=== PATIENT | male | born 1975 | race Caucasian/White ===

== ENCOUNTER 2022-07-13 03:29 | Emergency (ER) | payer OTHER, SELFPAY ==
[2022-07-13 03:36] VITALS: BP 165/96; PULSE 94; RESP 18; TEMP 36.7; O2SAT 96; BMI 46.8
--- NOTE | 2022-07-13 03:43 | ED_ITS ---
HPI - General Adult General: Chief complaint: General Medical Stated complaint: Sinus Infection Time Seen by Provider: 07/13/22 03:40 Source: patient Mode of arrival: ambulatory Limitations: no limitations History of Present Illness: 46-year-old male who states over the last week he has had nasal congestion along with cough and some dyspnea. He is a chronic smoker he states that he is tried [id number] medicines and his cough is worsened and is productive. He denies any fever he is able speak in full senses here. Associated symptoms: Deny chest pain, headache(s), nausea, rash or vomiting Review of Systems Const: Denies: fever(s), chills, body aches or change in appetite Eyes: Denies: blurry vision or eye discomfort ENMT: Reports: nasal congestion and sinus pain Card: Denies: chest pain Resp: Reports: productive cough and chest congestion GI: Denies: abdominal pain, nausea, vomiting or diarrhea : Denies: dysuria Musc: Denies: neck pain or back pain Skin/Breast: Denies: rash Neuro: Denies: headache(s) Psych: Denies: depression Jaden/Lymph: Denies: easy bruising All/Imm: Denies: urticaria PFSH ED PFSH: Medical History (Updated 07/13/22 @ 03:51 by Steve Us MD) No pertinent past medical history Social History (Updated 07/13/22 @ 03:44 by Steve Us MD) Smoking and tobacco status: current every day smoker Physical Exam Const: COMMON NORMALS: no acute distress, patient oriented x3 and healthy appearing HENMT: COMMON NORMALS: normocephalic and atraumatic HEAD & SCALP: normocephalic and atraumatic Eye: COMMON NORMALS: Equal, round and reactive pupils present and EOMs intact bilaterally PUPIL: Yes Equal, round and reactive pupils present Neck/C-Spine: COMMON NORMALS: full ROM and supple Chest: COMMONS NORMALS: normal inspection of the chest and normal palpation of entire chest wall Resp: COMMON NORMALS: normal respiratory effort, No retractions, No use of accessory muscles and clear to auscultation bilaterally AUSCULTATION: clear to auscultation bilaterally Cardio: COMMON NORMALS: regular rate, regular rhythm and No murmurs present (Cardio) RATE: regular rate RHYTHM: regular rhythm GI: COMMON NORMALS: Normal to inspection, nondistended, normoactive bowel sounds present, Soft to palpation, non-tender and no masses PALPATION: Yes Soft to palpation Extremity: COMMON NORMALS: normal to inspection and full ROM Neuro: COMMON NORMALS: patient oriented x3, moves all extremities and no focal motor deficits Psych: COMMON NORMALS: mental status grossly normal, Normal thought process present and cooperative THOUGHT PROCESS: Normal thought process present Skin: COMMON NORMALS: no rashes or lesions noted and no wounds GENERAL SKIN EXAM: no rashes or lesions noted Course Vital Signs: Vital signs: Vital Signs Temperature 98.1 F 07/13/22 03:36 Pulse Rate 88 07/13/22 04:03 Respiratory Rate 16 07/13/22 04:03 Blood Pressure 165/88 07/13/22 04:03 Pulse Oximetry 95 07/13/22 04:03 Oxygen Delivery Me thod 07/13/22 03:36 MDM - General Adult Medical Decision Making Patient presents here with cough congestion likely a bronchitis we will place him on antibiotics he is given a steroid here he stable for discharge he is to follow-up his PCP and return if worsening. Discharge Plan Discharge Patient Disposition: Home Clinical Impression: Bronchitis Prescriptions: New cephalexin 500 mg capsule 500 mg PO TID 7 Days Qty: 21 0RF No Action trazodone 300 mg Tablet 300 mg PO DAILY Trelegy Ellipta 200-62.5-25 mcg Blister With Device 1 inh INHALATION Q24H Discharge Orders: Discharge ED (Routine); Ordered 07/13/22 Ordered By: Steve Us Discharge Diet: Advance as tolerated Discharge Activity: Resume usual activity Patient Instructions: Acute Bronchitis (ED) Coding Level of Care Code ED [employer] F[employer] Exam Comprehensive
--- NOTE | 2022-07-13 03:43 | XRR_ITS ---
PROCEDURE INFORMATION: Exam: XR Chest Exam date and time: 07/13/2022 4:46 AM Age: 46 years old Clinical indication: Cough and shortness of breath; Patient HX: Cough with SOB TECHNIQUE: Imaging protocol: Radiologic exam of the chest. Views: 1 view. COMPARISON: No relevant prior studies available. FINDINGS: Lungs: There are bibasilar interstitial opacities as may be seen in viral pneumonitis or atypical pneumonia. There is no evidence of focal pulmonary consolidation. Pleural spaces: No pleural effusion or pneumothorax. Heart/Mediastinum: Normal in size. Bones/joints: No acute fracture is identified. XR/XR chest 1V portable [id number] IMPRESSION: Findings suggestive of viral pneumonitis such as COVID-19, or atypical pneumonia. Clinical correlation is necessary.
[2022-07-13] MEDS: cephALEXin 500 mg Capsule PO (03:53)
[2022-07-13] MEDS: dexamethasone 10 mg/mL INJ IM (03:53)
[2022-07-13 04:03] VITALS: BP 165/88; PULSE 88; RESP 16; O2SAT 95
== END 2022-07-13 04:04 | disposition home or self-care (01) ==
PROVIDERS: Emergency Provider Emergency Medicine
DX: J40 Bronchitis, not specified as acute or chronic (principal); F17.210 Nicotine dependence, cigarettes, uncomplicated
CPT/HCPCS: 71045; 96372; 99284; J1100